=== PATIENT | female | born 1990 | race Caucasian/White ===

== ENCOUNTER 2016-08-29 00:27 | Emergency (ER) | payer MEDICARE | END 2016-08-29 02:59 | disposition home or self-care (01) | LOC: ER1 00:27 | DX: O9A.212 Injury, poisoning and certain other consequences of external causes complicating pregnancy, second trimester (principal); S50.01XA Contusion of right elbow, initial encounter; S30.810A Abrasion of lower back and pelvis, initial encounter; S39.91XA Unspecified injury of abdomen, initial encounter; W10.9XXA Fall (on) (from) unspecified stairs and steps, initial encounter; Z88.0 Allergy status to penicillin; Z3A.16 16 weeks gestation of pregnancy | CPT/HCPCS: 99283 ==

== ENCOUNTER → 2016-09-29 | Outpatient (CLI) | payer OTHER | LOC: LAB 10:39 | DX: Z02.1 Encounter for pre-employment examination (principal) | CPT/HCPCS: 86706; 86735; 86762; 86765; 86787 ==

== ENCOUNTER → 2020-07-27 | Outpatient (CLI) | payer BC, OTHER ==
[~2020-07-27] MED LIST: CEFUROXIME500 MG PO; NORCO 5-325 TA1 EACH PO; ONDANSETRON ODT4 MG PO; PYRIDIUM200 MG PO
[2020-07-27 06:16] LABS: HEMOGLOBIN 12.6 gm/dl (12.3-15.3); RED BLOOD COUNT 4.64 M/UL (4.00-5.10); WHITE BLOOD COUNT 13.9 K/UL (4.5-11.0)
[2020-07-27 12:53] LABS: BUN/CREATININE RATIO 22 (0-10)
== END ==
LOC: LAB 00:11
PROVIDERS: Nurse Practitioner Family
DX: R53.83 Other fatigue (principal); L65.9 Nonscarring hair loss, unspecified; G47.00 Insomnia, unspecified
CPT/HCPCS: 36415; 80053; 80061; 82607; 83735; 84439; 84443; 85025; 85652; 86038; 86140

== ENCOUNTER → 2021-09-15 | Outpatient (CLI) | payer BC | LOC: LAB 23:31 | PROVIDERS: Family Medicine | DX: R10.9 Unspecified abdominal pain (principal) | CPT/HCPCS: 80053 ==

== ENCOUNTER → 2021-09-16 | Outpatient (CLI) | payer BC | LOC: US 14:30 | DX: R10.9 Unspecified abdominal pain (principal); N13.30 Unspecified hydronephrosis ==

== ENCOUNTER → 2021-11-12 | Outpatient (CLI) | payer BC, OTHER | LOC: CT 07:57 | DX: N13.5 Crossing vessel and stricture of ureter without hydronephrosis (principal); R10.9 Unspecified abdominal pain; K76.0 Fatty (change of) liver, not elsewhere classified; N28.9 Disorder of kidney and ureter, unspecified; Z97.5 Presence of (intrauterine) contraceptive device | CPT/HCPCS: 87077; 87086; Q9967 ==

== ENCOUNTER 2021-11-28 21:40 | Emergency (ER) | payer BC, OTHER | END 2021-11-28 22:20 | disposition left against medical advice (07) | LOC: ER1 21:40 | DX: Z53.21 Procedure and treatment not carried out due to patient leaving prior to being seen by health care provider (principal) ==